=== PATIENT | female | born 1995 | race Asian ===

== ENCOUNTER 2022-10-12 08:46 | Outpatient (CLI) | payer BC | END 2022-10-12 08:47 | disposition home or self-care (01) | LOC: BICULT 08:46 | PROVIDERS: ATTEND Family Medicine | DX: N63.22 Unspecified lump in the left breast, upper inner quadrant (principal); N63.20 Unspecified lump in the left breast, unspecified quadrant | CPT/HCPCS: 19083; 38505; 88305; 88341; 88342 ==

== ENCOUNTER 2022-10-25 14:07 | Outpatient (CLI) | payer BC ==
[2022-10-25 17:18] LABS: #Basophils 0.1 10x3/uL (0.0-0.2); #Eosinphils 0.6 10x3/uL (0.0-0.5); #Monocytes 0.5 10x3/uL (0.0-1.1); #Neutrophils 3.5 10x3/uL (1.5-8.4); %Basophils 1.3 % (0.0-2.0); %Eosinophils 8.2 % (0.0-6.0); %Monocytes 5.9 % (0.0-10.0); %Neutrophils 44.5 % (40.0-75.0); Mean Corpuscular HGB CONC 34.6 g/dL (32.0-36.0); Mean Corpuscular Hemoglobin 29.4 pg (27.0-33.0); Mean Corpuscular Volume 84.9 fl (81.6-98.3); Mean Platelet Volume 9.2 fl (7.4-10.4); Platelet Count 344 10x3/uL (150-450); RBC Distribution Width 11.8 % (11.5-14.5); Red Blood Cell (RBC) Count 5.11 10x6/uL (3.90-5.03); White Blood Cell (WBC) Count 7.9 10x3/uL (3.5-10.5)
[2022-10-25 17:34] LABS: BHCG - Serum Negative (NEGATIVE); Pregs Control Background? CLEAR/WHITE (CLR/WHITE); Pregs Control Bar Appear? YES (CONTROL BAR)
[2022-10-25 17:35] LABS: Anion Gap 15 mmol/L (10-20); BUN (Urea Nitrogen) 6 mg/dL (7.0-18.7); Calc. Creatinine Clearance 0 mL/min (70-130); Calcium 9.5 mg/dL (7.8-10.44); Carbon Dioxide 21 mmol/L (22-29); Chloride 107 mmol/L (98-107); Estimated GFR 123; Glucose 76 mg/dL (70-105); Potassium 4.2 mmol/L (3.5-5.1); Sodium 139 mmol/L (136-145)
== END 2022-10-25 14:08 | disposition home or self-care (01) ==
LOC: LABBT 14:07
PROVIDERS: ATTEND Specialist
DX: Z01.818 Encounter for other preprocedural examination (principal); C50.912 Malignant neoplasm of unspecified site of left female breast
CPT/HCPCS: 80048; 84703; 85025; 93005; 93010

== ENCOUNTER 2022-10-27 09:24 | Outpatient (CLI) | payer BC | END 2022-10-27 09:25 | disposition home or self-care (01) | LOC: BICMRI 09:24 | PROVIDERS: ATTEND Internal Medicine Hematology & Oncology | DX: C50.812 Malignant neoplasm of overlapping sites of left female breast (principal); N63.22 Unspecified lump in the left breast, upper inner quadrant | CPT/HCPCS: A9577; C8908 ==

== ENCOUNTER 2022-10-27 11:15 | Outpatient (CLI) | payer BC ==
[~2022-10-27 11:15] MED LIST: Iopamidol 370 76% 100 ML VIAL ONE
[2022-10-27 13:13] LABS: BHCG - Serum Negative (NEGATIVE); Pregs Control Background? CLEAR/WHITE (CLR/WHITE); Pregs Control Bar Appear? YES (CONTROL BAR)
== END 2022-10-27 11:16 | disposition home or self-care (01) ==
LOC: NM 11:15
PROVIDERS: ATTEND Internal Medicine Hematology & Oncology
DX: C50.812 Malignant neoplasm of overlapping sites of left female breast (principal); Z32.00 Encounter for pregnancy test, result unknown; R91.1 Solitary pulmonary nodule
CPT/HCPCS: 71260; 74177; 78306; 84703; A9503; Q9967

== ENCOUNTER 2022-10-28 07:53 | Day surgery (SDC) | payer BC ==
[2022-10-25 14:56] VITALS: BMI 29.2
[2022-10-28] MEDS ORDERED: Ketorolac Tromethamine 30 MG/ML VIAL ONE (09:18)
[2022-10-28] MEDS ORDERED: Acetaminophen 500 MG TAB ONE ×2 (09:18→09:28)
[2022-10-28] MEDS ORDERED: Bupivacaine/Epinephrine 0.25% 30 ML VIAL ONE (09:39)
[2022-10-28] MEDS ORDERED: Lidocaine 2% PF 5 ML VIAL ONE (09:39)
[2022-10-28] MEDS ORDERED: Propofol 500 MG/50 ML VIAL ONE ×2 (09:52→09:53)
[2022-10-28] MEDS ORDERED: fentaNYL PF 100 MCG/2 ML SYRINGE ONE (09:52)
[2022-10-28] MEDS ORDERED: CEFAZOLIN 2 GM VIAL ONE (10:01)
[2022-10-28] MEDS ORDERED: Sodium Chloride 0.9% 100 ML ONE (10:01)
[2022-10-28] MEDS ORDERED: Ondansetron PF 4 MG/2 ML Vial ONE (10:10)
[2022-10-28] MEDS ORDERED: PROPOFOL 200 MG/20 ML VIAL ONE (10:10)
[2022-10-28] MEDS ORDERED: Dexamethasone 20 MG/5 ML VIAL ONE (10:10)
== END 2022-10-28 11:50 | disposition home or self-care (01) ==
LOC: SDC 07:53
PROVIDERS: ATTEND Specialist
PROC: B518ZZA Fluoroscopy of Superior Vena Cava, Guidance (ICD-10-PCS; principal; 2022-10-28)
PROC: 02HV33Z Insertion of Infusion Device into Superior Vena Cava, Percutaneous Approach (ICD-10-PCS; principal; 2022-10-28)
PROC: 0JH60WZ Insertion of Totally Implantable Vascular Access Device into Chest Subcutaneous Tissue and Fascia, Open Approach (ICD-10-PCS; principal; 2022-10-28)
DX: C50.812 Malignant neoplasm of overlapping sites of left female breast (principal); J45.909 Unspecified asthma, uncomplicated; Z17.1 Estrogen receptor negative status [ER-]; Z79.3 Long term (current) use of hormonal contraceptives; Z79.84 Long term (current) use of oral hypoglycemic drugs; Z79.899 Other long term (current) drug therapy; D24.2 Benign neoplasm of left breast; N63.21 Unspecified lump in the left breast, upper outer quadrant
CPT/HCPCS: 19083; 71045; 88305; C1788; J1100; J1642; J1885; J2001; J2405; J2704; J3490

== ENCOUNTER 2022-10-28 14:00 | Outpatient (CLI) | payer BC | END 2022-10-28 14:01 | disposition home or self-care (01) | LOC: BICULT 14:00 | PROVIDERS: ATTEND Internal Medicine Hematology & Oncology | DX: D24.2 Benign neoplasm of left breast (principal); N63.21 Unspecified lump in the left breast, upper outer quadrant | CPT/HCPCS: 19083 ==

== ENCOUNTER 2023-05-12 14:42 | Observation (INO) | payer BC ==
[2023-05-12 15:45] VITALS: BMI 28.9
[2023-05-12] MEDS: Sodium Chloride 0.9% 1,000 ML IV SCH (17:06)
[2023-05-12] MEDS: metFORMIN 500 MG TAB PO SCH (20:04)
[2023-05-12] MEDS: Acetaminophen 325 MG TAB PO PRN (20:04)
[2023-05-12] MEDS ORDERED: Lidocaine 2% Viscous Solution 10 ML, Aluminum & Magnesium Hydroxide 30 ML SSW SCH (20:15)
[2023-05-12] MEDS: Mometasone 100 MCG HFA INHALER (RT USE) INH SCH (20:30)
[2023-05-12] MEDS: Ipratropium/Albuterol 3 ML NEB NEB SCH (20:30)
[2023-05-12] MEDS ORDERED: FLUoxetine HCl 20 MG CAP PO SCH (21:00)
[2023-05-13] MEDS: Ipratropium/Albuterol 3 ML NEB NEB SCH ×3 (01:18→14:19)
[2023-05-13] MEDS: Acetaminophen 325 MG TAB PO PRN (03:41)
[2023-05-13] MEDS ORDERED: Phenol 177 ML BOT PO PRN (03:51)
[2023-05-13 04:42] LABS: Anion Gap 15 mmol/L (10-20); BUN (Urea Nitrogen) 9 mg/dL (7.0-18.7); Calc. Creatinine Clearance 163 mL/min (70-130); Calcium 8.9 mg/dL (7.8-10.44); Carbon Dioxide 16 mmol/L (22-29); Chloride 110 mmol/L (98-107); Estimated GFR 126; Glucose 102 mg/dL (70-105); Potassium 4.1 mmol/L (3.5-5.1); Sodium 137 mmol/L (136-145)
[2023-05-13] MEDS: Acetaminophen W/ Codeine 5 ML UDCUP PO PRN ×3 (04:45→16:08)
[2023-05-13] MEDS: Sodium Chloride 0.9% 1,000 ML IV SCH (04:46)
[2023-05-13] MEDS ORDERED: methylPREDNISolone Sod Succ/PF 125 MG/2 ML VIAL IVP SCH (05:15)
[2023-05-13 07:02] VITALS: TEMP 101.3
[2023-05-13] MEDS: Mometasone 100 MCG HFA INHALER (RT USE) INH SCH (08:03)
[2023-05-13 08:13] LABS: Hematocrit 34.8 % (36.0-47.0); Hemoglobin 11.5 g/dL (12.0-16.0); Mean Corpuscular Hemoglobin 31.3 pg (27.0-31.0); Mean Corpuscular Volume 94.6 fl (78.0-98.0); Mean Platelet Volume 9.4 fL (7.4-10.4); Platelet Count 191 10x3/uL (130-400); RBC Distribution Width 12.5 % (11.5-14.5); Red Blood Cell (RBC) Count 3.68 mill/uL (4.20-5.40)
[2023-05-13] MEDS: metFORMIN 500 MG TAB PO SCH (08:15)
[2023-05-13 08:17] LABS: Delete Auto Diff?? YES; Manual Diff?? YES
[2023-05-13] MEDS ORDERED: Loratadine 10 MG TAB PO SCH (09:00)
[2023-05-13] MEDS ORDERED: Azelastine 137 MCG/NASAL Spray 30 ML NS SCH (09:00)
[2023-05-13 09:25] LABS: Band 11 % (5-11); CellaVision Operator ID LAB.NR; Lymphocytes 2 % (21-51); Monocytes 2 % (0-10); Neutrophil 85 % (42-75); Platelet Adequacy Comment Platelets Decreased; Polychromasia SLIGHT = 2-3 cells HPF (0-2); Smudge Cells 7.9 %; Total Cell Count 101
[2023-05-13] MEDS ORDERED: methylPREDNISolone Sod Succ 40 MG VIAL IVP SCH (12:00)
[2023-05-13] MEDS ORDERED: HumaLOG 300 UNITS/3 ML VIAL SC PRN (12:25)
[2023-05-13] MEDS ORDERED: Glucagon 1 MG/ML KIT IM PRN (12:25)
[2023-05-13] MEDS ORDERED: Dextrose 5% in Water 1,000 ML IV PRN (12:25)
[2023-05-13] MEDS ORDERED: Dextrose 50% Abboject 50 ML SYRINGE SLOW IVP PRN (12:25)
[2023-05-13] MEDS ORDERED: Fluconazole 100 MG TAB PO SCH (14:00)
== END 2023-05-13 16:29 | disposition home or self-care (01) ==
LOC: INTOOBSV 15:38 → IMCU/EMU 15:38
PROVIDERS: ADMIT Internal Medicine; ATTEND Internal Medicine
DX: B08.4 Enteroviral vesicular stomatitis with exanthem (principal); B37.0 Candidal stomatitis; J45.909 Unspecified asthma, uncomplicated; Z90.89 Acquired absence of other organs
CPT/HCPCS: 36415; 36416; 80048; 85025; 86747; 94640; 96374; 96376; J2920; J2930; J7050; J7620

== ENCOUNTER 2023-05-14 16:21 | Emergency (ER) | payer BC ==
[2023-05-14] MEDS ORDERED: Ondansetron PF 4 MG/2 ML Vial ONE ×2 (17:50→19:31)
[2023-05-14] MEDS ORDERED: Morphine 4 MG/ML VIAL ONE ×2 (17:50→19:31)
[2023-05-14 18:21] LABS: Hematocrit 38.5 % (36.0-47.0); Hemoglobin 12.7 g/dL (12.0-16.0); Mean Corpuscular Hemoglobin 30.8 pg (27.0-31.0); Mean Corpuscular Volume 93.2 fl (78.0-98.0); Mean Platelet Volume 8.9 fL (7.4-10.4); Platelet Count 171 10x3/uL (130-400); RBC Distribution Width 12.4 % (11.5-14.5); Red Blood Cell (RBC) Count 4.13 mill/uL (4.20-5.40)
[2023-05-14 18:22] LABS: Delete Auto Diff?? YES; Manual Diff?? YES
[2023-05-14 18:45] LABS: ALT (SGPT) 19 U/L (8-55); AST (SGOT) 17 U/L (5-34); Albumin 3.8 g/dL (3.5-5.0); Alkaline Phosphatase 75 U/L (40-110); Anion Gap 17 mmol/L (10-20); BUN (Urea Nitrogen) 10 mg/dL (7.0-18.7); Bilirubin, Total 0.6 mg/dL (0.2-1.2); Calc. Creatinine Clearance 0 mL/min (70-130); Calcium 8.8 mg/dL (7.8-10.44); Carbon Dioxide 17 mmol/L (22-29); Chloride 105 mmol/L (98-107); Estimated GFR 124; Globulin 3.6 g/dL (2.4-3.5); Glucose 115 mg/dL (70-105); Lipase 6 U/L (8-78); Magnesium 1.9 mg/dL (1.6-2.6); Potassium 3.6 mmol/L (3.5-5.1); Protein, Total 7.4 g/dL (6.0-8.3); Sodium 135 mmol/L (136-145)
[2023-05-14 18:51] LABS: Band 39 % (5-11); CellaVision Operator ID LAB.MJL; Lymphocytes 8 % (21-51); Monocytes 2 % (0-10); Neutrophil 46 % (42-75); Ovalocytes SLIGHT = 2-5 cells HPF (0-1); Platelet Adequacy Comment Platelets Normal; Polychromasia SLIGHT = 2-3 cells HPF (0-2); Reactive Lymphocytes 2 % (0-10); Total Cell Count 100
== END 2023-05-14 19:47 | disposition short-term general hospital (02) ==
LOC: ERS 16:21
DX: E86.0 Dehydration (principal); L51.1 Stevens-Johnson syndrome; E11.9 Type 2 diabetes mellitus without complications; Z79.84 Long term (current) use of oral hypoglycemic drugs; Z20.822 Contact with and (suspected) exposure to COVID-19
CPT/HCPCS: 80053; 83690; 83735; 85025; 87635; 96361; 96374; 96375; 96376; J2270; J2405

== ENCOUNTER 2024-03-22 13:46 | Outpatient (CLI) | payer BC | END 2024-03-22 13:47 | disposition home or self-care (01) | LOC: CT 13:46 | PROVIDERS: ATTEND Internal Medicine Hematology & Oncology | DX: C50.812 Malignant neoplasm of overlapping sites of left female breast (principal); R91.1 Solitary pulmonary nodule | CPT/HCPCS: 71260; 74177 ==

== ENCOUNTER 2025-03-01 15:05 | Outpatient (CLI) | payer BC ==
[~2025-03-01 15:05] MED LIST changes: -Iopamidol 370 76% 100 ML VIAL ONE; +Iopamidol-370 76% 500 ML MDV (1 ML CHARGE) ONE
== END 2025-03-01 15:06 | disposition home or self-care (01) ==
LOC: CT 15:05
PROVIDERS: ATTEND Nurse Practitioner Adult Health
DX: C50.812 Malignant neoplasm of overlapping sites of left female breast (principal); D70.8 Other neutropenia
CPT/HCPCS: 71270; Q9967